=== PATIENT | female | born 1990 | race Caucasian/White ===

== ENCOUNTER → 2016-11-19 | Outpatient (CLI) | payer MEDICAID ==
--- NOTE | 2016-11-19 14:04 | US ---
Alexis Pena, Thank you for sending your patient, Olimpia Weiss, to us for a follow-up US to assess interval growth. As you know, the patient is a 26 y.o. G1, P0 at 32 weeks and 0 days with an EDC of 01/14 based on a 9 week US. Olimpia had an abnormal Quad Screen with an increased risk of Trisomy 18 (1:39). She had a normal genetic sonogram and reassuring NIPT results (46 XY). Today, she presents for a growth US given abnor mal serum analytes on her Quad Screen. The patient denies any uterine contractions, vaginal bleeding, or loss of fluid. She reports excellen t movement. Today, she is without complaints. US FINDINGS: Number of fetuses: 1 Placental location: Anterior, no previa presentation: BREECH Cervix: Suboptimal MVP: 3.8 cm ARMAND: 7.9 cm Measurements: Biparietal diameter: 77 mm, 31 weeks 1 days Head circumference: 307 mm, 34 weeks 2 days Abdominal circumference: 278 mm, 31 weeks 6 days Femur length: 57 mm, 30 weeks 0 days Humerus length: 52 mm, 30 weeks 4 days Transcerebellar diameter: 41 mm, 32 weeks 5 days Cerebral Lateral Ventricle: 2.6 mm Cisterna Magna: Suboptimal Heart Rate: 139 bpm Average ultrasound age: 31 weeks 6 days Estimated weight: 1762 g weight percentile: 22 % Anatomy: anatomy was previously assessed. Today the following structures were visualized and appeared n ormal: lateral ventricles, 4CH view, stomach, kidneys, and bladder. IMPRESSION: 1. Growth: The fetus measures appropriate for gestational age, measuring at a normal weight and perc entile. Visualization of the fetus today reveals no overt structural anomalies. movement was se en during the examination. 2. Borderline Amniotic Fluid Volume: Today, the ARMAND measured 7.9 cm which is still within normal limi ts, but is lower than expected for gestational age. The patient denies any symptoms consistent with r upture of membranes. We discussed that her amniotic fluid volume will need to be monitored to ensure that she does not develop oligohydramnios. - Monthly fluid checks with your office - If oligohydramnios develops at <37 weeks, please refer to [facility] for a follow-up consultation and grow US - If oligohydramnios develops at 37+0 weeks or greater, we recommend delivery. Thank you again for sending this patient to see us today. Approximately 15 minutes were spent with th is patient today with 12 minutes of this time spent in direct face to face counseling regarding today 's US findings and our recommendations. Please contact me with any questions at . Ketty Randall MD Maternal- Medicine
--- NOTE | 2016-11-19 18:20 | US ---
Ultrasound Obstetric Follow Up Indication: Abnormal quad screen. The estimated gestational age by LMP is 32 weeks and 0 days yield ing an EDC of January 14, 2017. Comparison: August 2016. Findings: Number: 1 Presentation: Breech Placental location: Anterior without previa Cervix: Suboptimal Amniotic MVP: 3.8 cm, ARMAND 7.9 cm Biometry: Biparietal diameter: 77.31 mm 31 weeks, 1 days Head circumference: 307.37 mm 34 weeks, 2 days Abdominal circumference: 277.5 mm 31 weeks, 6 days Femur length: 57.1 for mm 30 weeks, 0 days Humerus length: 52.3 mm 30 weeks, 4 days Transcerebellar diameter: 41.01 mm 32 weeks, 5 days HC/AC: 1.11 ( 0.96-1.17 ) FL/BPD: 74% FL/AC: 21% Average ultrasound age: 31 weeks, 6 days EDC based on today's average ultrasound age: January 15, 2017 Estimated weight is 1762 gms +/- 257 gms. The estimated weight is at the 22 % based on pr evious dating. ANATOMY : Previous evaluated. FHR 139 bpm. Limited anatomy demonstrates lateral ventricles, four-chamber view the heart , stomach, kidneys and bladder visualized. Fetus currently in breech presentation. Impression: 1. Living gillespie in BREECH presentation. 2. Size concordant with dates. 3. Low normal ARMAND at 7.9 cm. 4. Please see Dr. Ketty Randall's consult and recommendations.
== END ==
LOC: FIMAGING 12:38
PROVIDERS: ATTEND Obstetrics & Gynecology
DX: O28.8 Other abnormal findings on antenatal screening of mother (principal); Z3A.32 32 weeks gestation of pregnancy

== ENCOUNTER → 2016-12-24 | Outpatient (CLI) | payer MEDICAID | LOC: FIMAGING 12:25 | PROVIDERS: ATTEND Obstetrics & Gynecology | DX: O28.5 Abnormal chromosomal and genetic finding on antenatal screening of mother (principal); Z3A.37 37 weeks gestation of pregnancy; O41.03X0 Oligohydramnios, third trimester, not applicable or unspecified; O36.5930 Maternal care for other known or suspected poor fetal growth, third trimester, not applicable or unspecified ==